=== PATIENT | male | born 1960 | race Caucasian/White ===

== ENCOUNTER 2023-09-20 13:55 | Inpatient (IN) | payer OTHER, SELFPAY ==
[2023-09-20] VITALS (16 sets, daily range): BP systolic 76–128; BP diastolic 51–73; BMI 21.2
[2023-09-20 10:29] LABS: % Basophils 0.4 % (0-2); % Eosinophils 0.9 % (0-6); % Immature Granulocytes 0.2 % (0-0.5); % Lymphocytes 21.8 % (20.5-51.1); % Monocytes 9.9 % (1.7-9.3); % Neutrophils 66.8 % (42.2-75.2); Absolute Eosinophils 0.1 10^3/uL (0-0.7); Absolute Lymphocytes 1.2 10^3/uL (1.2-3.4); Absolute Monocytes 0.5 10^3/uL (0.1-0.6); Absolute Neutrophils 3.7 10^3/uL (1.4-6.5); Hematocrit 39.5 % (39.0-52.0); Hemoglobin 13.6 g/dL (13.0-18.0); Mean Corp Hgb Conc. 34.4 g/dL (33.0-37.0); Mean Corpuscular Hgb 30.2 pg (27.0-31.0); Mean Corpuscular Volume 87.6 fL (80.0-94.0); Mean Platelet Volume 9.3 fL (7.4-10.4); Nucleated Red Blood Cells % 0 % (-); Platelet Count 199 10^3/uL (130-400); Red Blood Cell Count 4.51 10^6/uL (4.70-6.10); Red Cell Dist. Width 12.1 % (11.5-14.5); White Blood Cell Count 5.5 10^3/uL (4.8-10.8)
[2023-09-20] MEDS: NSS 500 IV ×2 (10:36→21:50)
--- NOTE | 2023-09-20 10:37 | ED.GENMED ---
History of Present Illness
General
Chief Complaint: Change in Mental Status
Source: patient
Exam Limitations: none
Time Seen by Provider: 09/20/23 09:59
Nursing documentation reviewed up to this point in time: agreed with
Travel History
Have you had any contact with someone who has COVID-19?: No
Do you have any symptoms of coronavirus? Fever > 100 degrees, chills, cough, shortness of breath, sore throat, loss of taste or smell, muscle aches, or headache?: No
History of Present Illness
History of Present Illness:
Patient diagnosed with early onset dementia last year, likely secondary to previous alcohol use, presents to ED from home secondary to 2-week history of worsening generalized weakness, confusion, and decreased oral intake. Patient himself, has no
complaints. Denies headache. Denies fever. Denies coughing. Denies chest pain. Denies abdominal pain. Denies nausea, vomiting, or diarrhea. Per ex-, at bedside, patient appears to be more unkempt, and also was found to be wandering in the
streets last week and had to be brought back to his house by neighbors/friends. Patient currently lives alone. Family members are working with social work associate, to potentially place patient in assisted living, as it has been deemed unsafe for patient
to be by himself by his neurologist at [facility].
Review of Systems
Review of Systems
Allergies reviewed?: Yes
All Other Systems: ROS reviewed and negative except as documented in HPI and ROS
Constitutional: Reports no symptoms; Denies fever or chills
Respiratory: Reports no symptoms; Denies cough
Cardiac: Reports no symptoms
ABD/GI: Reports no symptoms; Denies abdominal pain, vomiting or diarrhea
Musculoskeletal: Reports no symptoms
Skin: Reports no symptoms
Neurological: Reports other (Mental status change)
Phy Exam
Physical Exam
Physical Exam:
Physical Exam
General: no apparent distress, not acutely ill. afebrile. appears disheveled.
Head: nc/at. eomi
Neck: supple. no meningeal signs.
Heart: s1/s2 regular rate and rhythm, no murmur. equal radial pulses.
Lungs: no acute respiratory distress. clear bilaterally
Abdomen: normal bowel sounds. not tender.
Neuro: alert and oriented. no focal neurological deficits
Skin: no rash
Psychiatric: well kept. interactive and cooperative
Extremities: no edema. no calf tenderness.
Course
Orders/Labs/Results
Orders:
Orders
09/20/23 10:09
Alcohol Urgent
Complete Blood Count/With Diff Urgent
Comprehensive Metabolic Panel Urgent
Folate Urgent
Magnesium Urgent
Phosphorus Urgent
Comment: ADD ON
TSH Reflex To Free T4 Urgent
Comment: ALCOHOL,MAG,FOLATE,TSH REFLEX,VIT D ADDED ON BY FLOOR 10:20AM 09-20-23
Vitamin D, 25-Oh Urgent
09/20/23 10:22
Add On- LAB Urgent
Tests Added?: Magnesium, thiamine, folate, vitamin D, TSH with reflex to free T
09/20/23 10:24
Add On- LAB Urgent
Tests Added?: alcohol level
CT Head W/o Iv Contrast Urgent
Comment:
Reason For Exam: mental status change
09/20/23 10:25
Urinalysis Reflex To Culture Urgent
Date Specimen was Collected: 09/20/23
Time Specimen was Collected: 11:22
0.9% Sodium Chloride 500 ml [Nss] 500 ml IV BOLUS
09/20/23 13:00
0.9% Sodium Chloride 1000 ml [Nss] 1,000 ml Mvi, Adult [Multivitamin] 10 ml Thiamine Injection 100 mg IV 100 mls/hr
09/20/23 13:33
Urine Drug Abuse Screen Urgent
09/20/23 13:36
Admit/Transfer Patient As Directed
Co-Sign Provider:
Level of Care: Inpatient admission
Assign to:: IMU- Intermediate Care
Physician / Group: bennett nielson
Diagnosis: dehydration worsening dementia, hypotension, obtunded unclear
Reason for Hospitalization: dehydration worsening dementia, hypotension, obtunded unclear
Expected length of stay greater than two midnights?: Yes
ELOS- Estimated Length of Stay in days: 5
I certify the patient meets the requirements for IP care: Yes
Code Status As Directed
Resuscitation Status: Do not resuscitate
Reached after discussion with pt or family/Healthcare POA: Yes
Based on pt advanced directive or healthcare POA form: Yes
Decision communicated with: Her sister power of insurance defense attorney Pauline with patient's ex- and [id number]
DNR Bracelet Application ONCE
09/20/23 13:43
COVID-19 Antigen Urgent
Source: Nasal Swab
Blood Culture Q30M
NACHO Source: Blood/Venous
Specimen Description:
Blood Culture Q30M
NACHO Source: Blood/Venous
Specimen Description:
09/20/23 13:44
EKG [Electrocardiogram (*1)] Urgent
Reason for Study: QTc Monitoring
09/20/23 13:45
0.9% Sodium Chloride 1000 ml [Nss] 1,000 ml IV 2,000 mls/hr
09/20/23 13:49
Lorazepam [Ativan] 0.5 mg IV Q8HPRN PRN
09/20/23 13:50
FOLic ACID [Folvite] 1 mg 0.9% Sodium Chloride 50 ml [Nss] 50 ml IV DAILYPRN
09/20/23 13:51
DIETARY CONSULT Routine
Reason for Consult: Nutrition support, possible refeeding guidelines
MSAS SCORE As Directed
MSAS Score 0-4: Repeat MSAS every 2 hours until 0-4 for three consecutive assessments, then every 4 hours x 48
hours.
MSAS Score 5-7: For MILD withdrawl symptoms. Repeat MSAS and RASS every 2 hours
MSAS Score 8-11: For MODERATE withdrawal symptoms. Repeat MSAS and RASS every 1 hour. Consider ICU or IMU
level of care.
MSAS Score > 11: For SEVERE withdrawal symptoms. Repeat MSAS and RASS every 1 hour. Notify provider, consider
ICU level of care.
MSAS Additional Instructions: If no improvement or no decrease in score from severe to moderate within 12
hours, consult psychiatry
MSAS Notify Provider: Notify provider if patient requires more than 10 mg of Lorazepam in eight hour period.
09/20/23 20:00
Levetiracetam Injectable [Keppra] 500 mg IV Q12
Thiamine Injection 200 mg IV Q12
09/21/23 06:00
EEG Routine IN AM
Reason for Exam: mycoclonnic jerks concern seizure
09/21/23 08:00
FOLic ACID [Folvite] 1 mg PO DAILY
09/23/23 20:00
Thiamine HCl [Vitamin B1] 100 mg PO BID
Abnormal Lab Results
09/20/23
10:09
RBC 4.51 L 10^6/uL
(4.70-6.10)
Monocytes % 9.9 H %
(1.7-9.3)
BUN 24 H mg/dl
(9-20)
Glucose 107 H mg/dl
(70-99)
09/20/23 10:09
09/20/23 10:09
Vital Signs
Initial and Last Documented VS:
Initial Vital Signs
Temp Pulse Resp BP Pulse Ox
98.2 F 76 16 128/73 100
09/20/23 09:50 09/20/23 09:50 09/20/23 09:50 09/20/23 09:50 09/20/23 09:50
Last Documented Vital Signs
Temp Pulse Resp BP Pulse Ox
98.2 F 48 10 82/58 99
09/20/23 09:50 09/20/23 13:15 09/20/23 13:15 09/20/23 13:00 09/20/23 13:15
MDM/Problems Addressed
MDM/Problems Addressed:
Patient presenting symptoms, likely multifactorial, including significant decreased oral intake along with ongoing dementia. Mildly elevated BUN to creatinine ratio noted, otherwise unremarkable, including CT head. Patient will be admitted for
further evaluation, including continue IV hydration and likely requiring case management consultation for short-term/long-term placement.
*Critical Care Note
Total Time (30-74mins, 75-104mins- exclusive of procedures): Not Applicable
ED Attending Note
-
Portions of this chart may have been created with voice recognition software.� Occasional wrong word or��sound alike� substitutions may have occurred due to the inherent limitations of voice recognition software.
Discharge Plan
Departure
Patient Disposition: Admit
Date of Disposition: 09/20/23
Time of Disposition: 12:42
Admit to: Med/Surg
Presentation/result/management discussed w/ accepting MD/DO: Hospitalist
Discharge Problem:
Altered mental status, Dehydration
Interventions
Interventions:
*Risk Screen - Suicide Last Done: 09/20/23 09:57
*General Assessment Last Done: 09/20/23 09:57
*Neglect/Abuse Screening Last Done: 09/20/23 09:57
ED- Fall Risk Assessment Last Done: 09/20/23 10:37
ED- Pulmonary Assessment Last Done: 09/20/23 10:00
ED- Neurological Assessment Last Done: 09/20/23 09:57
ED- Cardiac Assessment Last Done: 09/20/23 10:00
ED Swallowing Screen Last Done: 09/20/23 11:25
[2023-09-20 11:10] LABS: ALT (SGPT) 32 U/L (0-50); AST (SGOT) 39 U/L (17-59); Albumin 4.2 g/dl (3.5-5.0); Alkaline Phosphatase 51 U/L (38-126); Blood Urea Nitrogen 24 mg/dl (9-20); Calcium 9.8 mg/dl (8.4-10.2); Carbon Dioxide 28 mmol/L (22-30); Chloride 104 mmol/L (98-107); Estimated Creatinine Clearance 102 ml/min; Glucose 107 mg/dl (70-99); Magnesium 2.2 mg/dl (1.6-2.3); Potassium 4.5 mmol/L (3.5-5.1); Sodium 141 mmol/L (135-145); Total Bilirubin 0.8 mg/dl (0.2-1.3); Total Protein 6.6 g/dl (6.3-8.2); eGFR > 60.00
[2023-09-20 11:54] LABS: Alcohol None Detected
--- NOTE | 2023-09-20 12:53 | HPS.HSE ---
Addendum entered and electronically signed by Lico Soria MD 09/20/23 17:38:
I saw and examined the patient.
The OPERATIONS SUPPORT SPECIALIST or PA's note was reviewed and I agree with the note.
Comment:
62M Early Onset Dementia brought in by his ex- due to increased confusion, hallucinations, wandering streets.� Patient had been diagnosed with dementia a year ago at [place] but, per family report, patient has had symptoms for the past 3-4 yrs.�
Recently developed hallucinations and shuffling gait for the past few months.� Ex- who hadn't seen patient in 2 weeks noted a dramatic change/deterioration in mental status since last she saw him, prompting her to bring patient to ED for further
evaluation.� It was noted that patient had previously been assessed by [place] Neurologist and deemed unsafe to live by himself.� ED evaluation was notable for hypotension and bradycardia.� Blood pressure improved with large fluid bolus.� Patient
himself was lethargic but arousable, confused rambling speech.� Intermittent jerking and shaking was noted, new as per family at bedside.� At one point, per reports, patient was essentially obtunded (since resolved though patient remains
non-coherent following simple commands to an extent).� Hypotensive systolic 80s with HR 40s.� BP eventually improved with large fluid bolus.
Physical Exam
General: No pallor, cyanosis, or jaundice.
HEENT: Throat clear. PERRLA Normocephalic atraumatic
NECK: Supple. No JVD Carotid Bruits
RESPIRATORY: Lungs clear to auscultation. No crackles wheezes stridor
CVS: S1, S2 normal. RRR.� No murmur, rub or gallop.
ABDOMEN: Soft, non-tender. No distension. BS+/normal.
EXTREMITIES: No peripheral cyanosis or edema.
DOCUMENT CONTROL MANAGER: incoherent mumbling speech generalized intermittent shaking/twitching some rigidity stiffness upper ext�s noted
#Early Onset Dementia Unspecified type associated with Hallucinations Behavioral Gait Disturbances
#Possible Lewy Body vs Frontotemporal Dementia
#Possible partial focal sz tic 2/2 progression dementia
#Hypotension likely d/t low volume
#Bradycardia
IMU admit
IVF challenge, levophed if hypotension does not resolve with fluid bolus
Trial Keppra 500 mg IV BID
Seizure fall aspiration precautions
ST/PT/OT
EEG
awake overnight monitor
Thiamine Folate Multivitamin supplementation
Check EKG
DNR as per family/sister POA Pauline
Original Note:
Family Physician
-
Family Physician: Abbie Cohen
Chief Complaint
-
Increased confusion, increased hallucinations, myoclonic jerks
History of Present Illness
62-year-old male from home brought in by his ex- due to increased confusion, wandering the streets, increased hallucinations. He was able to walk back to the room, but he is currently obtunded in the bed with occasional myoclonic jerks. He is
hypotensive 82/58 and bradycardic heart rate 47. His ex- did say yesterday she visited him and he had some nasal bleeding. They are unsure how often he goes out they are unsure of any review of systems. He diagnosed with frontal temporal lobe
dementia last year presumed secondary to alcohol use. The patient lives alone at home and has had 2 weeks worth of increased generalized weakness, confusion with decreased oral intake per his ex- at bedside. He also appears more unkept found
to be wandering the streets last night and was brought home by neighbors. His family members have been working with social work to place an assisted living as he has been deemed unsafe by neurology at [facility]. Past medical history prior
alcohol abuse sober since May 2008, dementia Dx since 2022 presumed secondary to alcohol abuse he has been drinking very heavily since early college. He has also had hallucinations for the past 6 months strong family history of alcohol abuse
biological father, maternal half brothers, biological brother and sister also history of depression, bipolar disorder and anxiety including 2 of his children
Medical History
Past Medical History
Past Medical History: Reports Other
Additional Past Medical History:
Alcohol abuse sober since May 2008,
dementia Dx since 2022 presumed secondary to prior alcohol abuse
History of hallucinations x 6 months
Hx bradycardia
Chronic fungal nail and toe infections
Past Surgical History: Reports None
Social History
Tobacco: Non-smoker
Alcohol: Former (Quit 2008 was drinking heavily since college)
Drug: None (Per family)
Personal:
Living: Alone
Employment: Retired
Family History
Family History: Other (Paternal father depression, history multiple suicide attempts, alcohol abuse, biological sister alcohol abuse bipolar disorder, biological brother alcohol abuse, depression, maternal half sibling 2 brothers with alcohol abuse
and anxiety, patient's 2 out of 4 children daughter with anxiety severe, s)
Allergies / Home Medications
Allergies reflects when Allergies were last updated in [facility].
Home Medications with original date entered in [facility]
Allergy/Medication List:
Allergies
Allergy/AdvReac Type Severity Reaction Status Date / Time
No Known Allergies Allergy Unverified 09/20/23 09:50
Home Medications
Aricept 10 mg PO HS 09/20/23
Review of Systems
-
History Source: Family (Sister Pauline power of battery container inspector, ex- present, [id number] present)
A 12 point ROS was completed and negative except as noted: Yes
Constitutional: Reports Fatigue and Other (Increased confusion, decreased oral intake, acute on chronic dementia)
EENT: Denies Runny Nose
Respiratory: Denies Cough
Cardiac: Denies Diaphoresis or Syncope
Abdomen/GI: Denies Vomiting or Diarrhea
Musculoskeletal: Denies Joint Pain, Joint Swelling or Edema
Skin: Reports Other (Chronic fungal nail infection to fingers and toes is on chronic antifungal unsure name persistent); Denies Rash
Hematologic/Lymphatic: Reports No Symptoms
Psych: Reports Other (Obtunded)
Physical Exam
Vital Signs
Vital Signs
Temp Pulse Resp BP Pulse Ox
98.2 F 65 15 92/55 100
09/20/23 09:50 09/20/23 11:15 09/20/23 11:15 09/20/23 11:00 09/20/23 11:15
Physical Exam
General: Other (Chronic fungal nail infection to fingers and toes is on chronic antifungal unsure name persistent, patient was obtunded on my exam but did awaken for attending)
HEENT: NormoCephalic, Anicteric, PERRLA and Other (Dry oral mucosa)
Respiratory: Clear; No Wheezes, Rales or Rhonchi
Cardiac: S1/S2 and Bradycardia (Sinus bradycardia heart rate 47 bpm)
Breast: Deferred by me
GI: Soft, Non Tender, Non Distended, Normal Bowel Sounds and No Hepatosplenomegaly
Genito-urinary: Deferred by me
Musculoskeletal: No Clubbing, No Cyanosis, No Edema and Other (Chronic fungal nail infection to fingers and toes is on chronic antifungal unsure name persistent)
Skin: Warm, Dry and Other (Chronic fungal nail infection to fingers and toes is on chronic antifungal unsure name persistent); No Rash
Neuro: Other (Obtunded with occasional myoclonic jerks on my exam but did awaken for attending 10 minutes later still with confusion difficult understand speech)
Psych: Calm
Laboratory Results
-
09/20/23 10:09
09/20/23 10:09
Laboratory Results
Total Bilirubin 0.8 mg/dl (0.2-1.3) 09/20/23 10:09
AST 39 U/L (17-59) 09/20/23 10:09
ALT 32 U/L (0-50) 09/20/23 10:09
Alkaline Phosphatase 51 U/L (38-126) 09/20/23 10:09
Data Reviewed
-
CT Scan: Report Reviewed by me
Lab Data: Labs Reviewed by me
Impression/Plan
-
Impression/plan:
Inpatient IMU
# Encephalopathy
Poss partial seiure tics 2/2 to progression dementia
#Advancing frontotemporal likely 2/2 alcoholic DEMENTIA with hx of sedations x 6 months
Recent history of wandering
-Patient was deemed unsafe to live alone by neurology Riccardo Chicas per family
-Consult PT/OT/case management for [place] [facility]
-Is reportedly on Aricept family unsure if taking
-Fall precautions
- EEG
-Check B12, folate, TSH, mag
-Check flu, COVID, UA DOCUMENT CONTROL MANAGER, UDS ,TSH with free T4, blood cultures x 2
- add Keprra iv 500 mg bid
-MVI ordered by ER
- Iv thiamine , folate
-IV Ativan 0.5 mg every 8 hours as needed agitation
CT head without contrast: No acute intracranial abnormality
#Hypotension likely secondary to decreased oral intake
82/58
Will give 2 L NSS
-IV NSS 100 cc/h
#Dehydration secondary to decreased oral intake
Bun 24, BP 92/55
-IV NSS 2 L bolus then 100 cc/h
-Follow BMP
#Hx bradycardia
Current sinus bradycardia 47 bpm on monitor
Check EKG
#Prior alcohol abuse-reported sober since May 2008
Drank heavily from college till May 2008
0Alcohol nondetected
#Chronic fungal rash to fingernails and toenails
Is on unknown antifungal medication
#Cachexia secondary to protein malnutrition�BMI 21.2 KG
-Consult dietary
DVT prophylaxis
Subcu Lovenox
DNR per Sister Pauline who is power of battery container inspector at bedside
[2023-09-20] MEDS: MULTIVITAMIN 1011 ML IV (13:37)
[2023-09-20] MEDS: MULTIVITAMIN 1011 MG IV (13:37)
[2023-09-20] MEDS: NSS 1000 IV ×3 (13:39→22:45)
[2023-09-20 14:23] LABS: COVID-19 Antigen Negative (Negative)
[2023-09-20 15:29] LABS: Vitamin D, 25-OH*** 49.3 ng/mL (30-80)
[2023-09-20 15:42] LABS: TSH Reflex To Free T4 0.85 uIU/ml (0.47-4.68)
[2023-09-20 16:18] LABS: Folate > 20.0 ng/ml (2.76-20)
[2023-09-20] MEDS: KEPPRA 500 MG IV ×2 (16:57→20:06)
[2023-09-20 18:00] LABS: Urine Albumin Negative (Neg - Trace); Urine Bilirubin 1+ (Negative); Urine Character Clear (Clear); Urine Color Yellow; Urine Glucose Negative (Negative); Urine Ketone 3+ (Negative); Urine Leukocyte Negative (Negative); Urine Nitrite Negative (Negative); Urine Occult Blood Negative (Negative); Urine Urobilinogen 1+ (Neg - 1+)
[2023-09-20] MEDS: LOVENOX 40 MG SC (18:18)
--- NOTE | 2023-09-20 18:22 | PTCARENOTE ---
Pt rec'd to 3346 from ED, stood and pivoted to stretcher, Pt steady on feet, receptive and expressive aphasia, able to eventually follow commands. Orders reviewed, admission completed and plan of care discussed with sister Pauline at bedside.VSS-plan
discussed with Dr. Soria. Diet ordered, UA sent, awaiting flu swabs from lab.
--- NOTE | 2023-09-20 19:02 | PTCARENOTE ---
Dr. Soria at bedside to reassess pt, regular diet ordered, now orders rec'd to downgrade pt to tele. Report given to cellophane tester RN Elvin.
[2023-09-20] MEDS: THIAMINE INJECTION 200 MG IV (20:07)
--- NOTE | 2023-09-20 21:51 | PTCARENOTE ---
sbp inn the 70's again - notified utility helicopter repairer- pt made imu again - fluid bolus ordered with possible levophed
--- NOTE | 2023-09-20 22:51 | PTCARENOTE ---
fluid bolus complete- levo order more map of 65- map is 67- will not start levo at this time- pt is sleeping in bed without distress. sinus kesha- room air, afebrile
[2023-09-21] VITALS (25 sets, daily range): BP systolic 84–124; BP diastolic 45–86; BMI 21.2
[2023-09-21 01:01] LABS: Amphetamines Negative (Negative); Barbiturates Negative (Negative); Benzodiazepines Negative (Negative); Buprenorphine Negative (Negative); Cocaine Negative (Negative); Marijuana Negative (Negative); Methadone Negative (Negative); Methamphetamines Negative (Negative); Opiates Negative (Negative); Phencyclidine Negative (Negative); Tricyclic Antidepressants Negative (Negative)
[2023-09-21 05:08] LABS: % Basophils 0.8 % (0-2); % Eosinophils 3.4 % (0-6); % Lymphocytes 26.5 % (20.5-51.1); % Monocytes 10.6 % (1.7-9.3); % Neutrophils 58.7 % (42.2-75.2); Absolute Eosinophils 0.2 10^3/uL (0-0.7); Absolute Lymphocytes 1.3 10^3/uL (1.2-3.4); Absolute Monocytes 0.5 10^3/uL (0.1-0.6); Absolute Neutrophils 2.9 10^3/uL (1.4-6.5); Hematocrit 32.3 % (39.0-52.0); Hemoglobin 11.2 g/dL (13.0-18.0); Mean Corp Hgb Conc. 34.7 g/dL (33.0-37.0); Mean Corpuscular Hgb 29.8 pg (27.0-31.0); Mean Corpuscular Volume 85.9 fL (80.0-94.0); Mean Platelet Volume 9.9 fL (7.4-10.4); Nucleated Red Blood Cells % 0 % (-); Platelet Count 152 10^3/uL (130-400); Red Blood Cell Count 3.76 10^6/uL (4.70-6.10); Red Cell Dist. Width 12.1 % (11.5-14.5)
[2023-09-21 05:28] LABS: ALT (SGPT) 21 U/L (0-50); AST (SGOT) 28 U/L (17-59); Albumin 2.7 g/dl (3.5-5.0); Alkaline Phosphatase 44 U/L (38-126); Blood Urea Nitrogen 16 mg/dl (9-20); Calcium 8.2 mg/dl (8.4-10.2); Carbon Dioxide 26 mmol/L (22-30); Chloride 108 mmol/L (98-107); Estimated Creatinine Clearance 119 ml/min; Glucose 92 mg/dl (70-99); Potassium 4.1 mmol/L (3.5-5.1); Sodium 139 mmol/L (135-145); Total Bilirubin 0.4 mg/dl (0.2-1.3); Total Protein 4.8 g/dl (6.3-8.2); eGFR > 60.00
--- NOTE | 2023-09-21 07:10 | W.PN.HOSP.TC ---
Today's Communication/Plan
-
NPO for now pending improvement mental status
IVF support
IV albumin once
ST/PT/OT
Levophed prn MAP goal 65
Assessment / Plan
Assessment / Plan
Physical Exam
General: No pallor, cyanosis, or jaundice.
HEENT: Normocephalic atraumatic
NECK: Supple. No JVD Carotid Bruits
RESPIRATORY: Lungs clear to auscultation. No crackles wheezes stridor
CVS: S1, S2 Sinus Blade.� No murmur, rub or gallop.
ABDOMEN: Soft, non-tender. No distension. BS+/normal.
EXTREMITIES: No peripheral cyanosis or edema.
SHOE COVERER: Sedated
62M Early Onset Dementia brought in by his ex- due to increased confusion, hallucinations, wandering streets.� Patient had been diagnosed with dementia a year ago at [place] but, per family report, patient has had symptoms for the past 3-4 yrs.�
Recently developed hallucinations and shuffling gait for the past few months.� Ex- who hadn't seen patient in 2 weeks noted a dramatic change/deterioration in mental status since last she saw him, prompting her to bring patient to ED for further
evaluation.� It was noted that patient had previously been assessed by [place] Neurologist and deemed unsafe to live by himself.� ED evaluation was notable for hypotension and bradycardia.� Blood pressure transiently improved with large fluid bolus.�
Patient himself was lethargic but arousable, confused rambling speech.� Intermittent jerking and shaking was noted, new as per family at bedside.� Fluctuating mental status throughout stay from sedated to agitated to pleasant Awake Alert Conversant
fluent speech.
#Encephalopathy
#Poss partial focal seizure tics 2/2 to progression dementia
#Early onset Dementia unclear type, possible Advancing frontotemporal vs Lewy Body vs alcoholic DEMENTIA
#Behavioral Disturbances Hallucinations progressive past 6 months.
-Patient deemed unsafe to live alone by neurology [facility] per family
-ST/PT/OT case mgmt eval
-Fall precautions
-EEG, empiric Keppra 500 mg Q12H started, cont.
-Check B12
-Folate non-deficient
-TSH, mag wnl
-Flu, COVID neg
-blood cultures x 2 NGTD
-MVI
- Iv thiamine , folate
-IV Ativan 0.5 mg every 8 hours as needed agitation reduced to 0.25 mg due to oversedation
CT head without contrast: No acute intracranial abnormality
#Hypotension likely secondary to decreased oral intake poor nutrition
#Hypoalbuminemia
received 2 L NSS on admission
cont IV NSS 100 cc/h
Albumin transfusion 25 g once 09/20
Levophed prn goal MAP 65, so far has not required
#Dehydration secondary to decreased oral intake
-IVF support
#Hx bradycardia
Sinus Bradycardia with associate hypotension systolic 80s
Cardio eval appreciated
#Prior alcohol abuse-reported sober since May 2008
Drank heavily from college till May 2008
Alcohol nondetected
#Cachexia secondary to protein malnutrition�BMI 21.2 KG
-dietary
DVT prophylaxis
Subcu Lovenox
DNR
Discussed with patient's sister FATIMAH Carpenter
I spent a total of 58 minutes with the patient or on the floor. More than 50% of this time involved counseling and coordination of care.
Anticipated Discharge: > 48 hours
Subjective/Interval History
-
Date of Service: September 21, 2023
Objective Data
-
Labs:
Laboratory Results
09/21/23
04:30
WBC 5.0
Hgb 11.2 L
Hct 32.3 L
Plt Count 152 D
Sodium 139
Potassium 4.1
Chloride 108 H
Carbon Dioxide 26
BUN 16
Creatinine 0.6 L
Glucose 92
Calcium 8.2 L D
Total Bilirubin 0.4
AST 28
ALT 21
Alkaline Phosphatase 44
Vital Signs:
Vital Signs
Temp Pulse Resp BP Pulse Ox
98.1 F 43 9 85/64 97
09/21/23 04:00 09/21/23 05:00 09/21/23 05:00 09/21/23 05:00 09/21/23 05:00
I&O
09/20/23 09/21/23 09/22/23
06:59 06:59 06:59
Intake Total 1180 / 1180
Output Total 925 / 925
Balance 255 / 255
--- NOTE | 2023-09-21 08:00 | PTCARENOTE ---
Pt becoming agitated can not redirect . pt does not seem to understand what i sat to him and what he says to me i do not understand. Ativan given as ordered with all other meds. Pt had a hard time taking pills as he did not know what to do, helped
pt put pills in mouth gave him a sip of water and he took the pills without incident
[2023-09-21] MEDS: NSS 1000 IV ×2 (08:09→20:06)
[2023-09-21] MEDS: FLEXBUMIN 100 IV (08:10)
[2023-09-21] MEDS: NSS (PRESERVATIVE FREE) 0.25 ML IV (08:13)
[2023-09-21] MEDS: ATIVAN 0.5 MG IV (08:14)
[2023-09-21] MEDS: THIAMINE INJECTION 200 MG IV ×2 (08:16→20:20)
[2023-09-21] MEDS: THERAGRAN 1 TABLET PO (08:20)
[2023-09-21] MEDS: KEPPRA 500 MG IV ×2 (08:20→20:12)
[2023-09-21] MEDS: FOLVITE 1 MG PO (08:21)
--- NOTE | 2023-09-21 09:35 | CON.CAR ---
Consultation
Consultation Request
Date/Time Consultation Requested: Sep 21 2023
Date/Time Consultation Performed: Sep 21 2023
Requesting Provider: Dr Soria
Performing Provider: Dr Barahona
Reason for Consultation: Bradycardia / hypotension
Medical History
-
Chief Complaint: Confusion
History of Present Illness:
.
Patient is 62 yo with hx of dementia diagnosed at [facility] one year ago but had symptoms for 3-4 yrs as per family. Brought in by ex- due to increased confusion, hallucinations, wandering the streets.�
Apparently pt had been assessed by [facility] neurologist who deemed pt unsafe to live alone. In ER, pt was found to has sinus bradycardia and hypotension. Hypotension responded to IVF. Pt was lethargic but arousable in ER with rambling speech. Pt
received ativan this AM and is now sedated. Per records pt had been essentially obtunded at one point but this resolved.
Cardiology was consulted for sinus bradycardia and hypotension. HR 40s with SBP 80s. Pt receiving albumin and IVF. pt started on Keppra by primary service after pt had twitching noted by medical team
Pt is DNR
Past Medical History:
Early onset dementia dx 2022, of unspecified type
Past alcoholic, sober since May 2008
History of hallucinations x 6 months
Hx bradycardia
Chronic fungal nail and toe infections
Pt is DNR, POA sister Pauline
No PSH
Social History
Tobacco: Non-Smoker
Alcohol: Former (Former heavy alcohol since college and quit in 2008. )
Drug: None
Personal:
Living: Alone
Employment: Retired
Family History
Family History: Reviewed & Not Pertinent (Father with depression and suicide attempts, brother and sister with alcoholism and depression)
Allergies / Home Medications
Allergy/AdvReac Type Severity Reaction Status Date / Time
No Known Allergies Allergy Unverified 09/20/23 09:50
�Medication �Instructions �Recorded �Confirmed �Type
Thu 1 tab PO DAILYPRN PRN runny nose 09/20/23 09/20/23 History
donepezil 10 mg tablet 10 mg PO HS Mental Health/Anxiety 09/20/23 09/20/23 History
terbinafine HCl 250 mg tablet 250 mg PO .SEE BELOW 09/20/23 09/20/23 History
Antifungal Agent,
Review of Systems
-
Unable to obtain full review of systems at this time due to: Dementia
History Source: Physician and Other (records)
All other systems: Negative unless noted
Constitutional: Fatigue and Other (Change mental status)
Neurological: Weakness
Physical Exam
Vital Signs
Temp Pulse Resp BP Pulse Ox
98.1 F 43 9 85/64 97
09/21/23 08:02 09/21/23 05:00 09/21/23 05:00 09/21/23 05:00 09/21/23 05:00
Physical examination:
General: No acute distress, lethargic
Neck: Negative JVD
Heart: Bradycardic, Negative S3 positive S1/S2, Negative S4, No murmur
Lungs: CTA b/l, negative wheezes/rales/rhonchi
Abd: Positive BS, NT/ND, neg rebound/rigidity/guarding
Ext: Negative cyanosis/clubbing/edema
Neuro: nonfocal
Lab Results
09/21/23 04:30
09/21/23 04:30
Impression / Plan
-
.
Impression:
Early onset dementia dx 2022, of unspecified type
Past alcoholic, sober since May 2008
History of hallucinations x 6 months
Hx bradycardia
Bradycardia
Hypotension
Pt is DNR, POA sister Pauline
Plan:
Continue supportive care
Bradycardia is multifactorial and pt apparently had hx of bradycardia. Some bradycardia can be from autonomic dysfunction in setting of dementia and neurological changes
Consider neuro eval.
Avoid AV jose blockers
Check echo
TSH normal
Monitor HR on tele
Pt appears to be a poor candidate for invasive PPM and is DNR.
Could consider Dopamine for HR support if necessary
Continue supportive care of hypotension. Some hypotension likely secondary to poor intake. Agree with albumin
IVF support
Echo pending
Prognosis is poor.
Discussed with nursing
Data Reviewed
-
EKG: Tracing Personally Visualized and interpreted
Labs: Labs Reviewed by me
[2023-09-21 13:25] LABS: Cortisol, Random 7.7 ug/dl
--- NOTE | 2023-09-21 13:50 | PTOTSP ---
SPEECH THERAPY SWALLOW EVALUATION:
Clinical signs of oropharyngeal dysphagia, likely chronic related to early onset dementia and acutely exacerbated by lethargy from Ativan administration from earlier today. Patient is clearly unsafe for oral diet or medications at this time, and is
at high risk for aspiration and related complications. Recommend temporary strict NPO; temporary alternate means for all nutrition/medication/hydration. Speech therapy to follow, re-assess patient in 24 hours, determine readiness for additional p.o.
trials, and provide diagnostic swallow therapy as appropriate.
RECOMMEND:
1) temporary strict NPO
2) temporary alternate means for all nutrition/medication/hydration
3) Speech therapy to follow, re-assess patient in 24 hours, determine readiness for additional p.o. trials, and provide diagnostic swallow therapy as appropriate
--- NOTE | 2023-09-21 16:40 | PTCARENOTE ---
Pt had been drowsy most of the day .family visited . Pt incont of urine
[2023-09-21 17:44] LABS: Vitamin B12 811 pg/ml (239-931)
[2023-09-21] MEDS: LOVENOX 40 MG SC (17:51)
[2023-09-21] MEDS: ATIVAN 0.25 MG IV (23:59)
[2023-09-22] VITALS (23 sets, daily range): BP systolic 77–124; BP diastolic 49–78; PULSE 75
[2023-09-22 04:07] LABS: % Basophils 0.6 % (0-2); % Eosinophils 2.5 % (0-6); % Immature Granulocytes 0.3 % (0-0.5); % Lymphocytes 15.4 % (20.5-51.1); % Neutrophils 73.2 % (42.2-75.2); Absolute Eosinophils 0.2 10^3/uL (0-0.7); Absolute Monocytes 0.5 10^3/uL (0.1-0.6); Absolute Neutrophils 4.8 10^3/uL (1.4-6.5); Hematocrit 35.6 % (39.0-52.0); Hemoglobin 12.8 g/dL (13.0-18.0); Mean Corpuscular Hgb 30.1 pg (27.0-31.0); Mean Corpuscular Volume 83.8 fL (80.0-94.0); Mean Platelet Volume 9.7 fL (7.4-10.4); Nucleated Red Blood Cells % 0 % (-); Platelet Count 166 10^3/uL (130-400); Red Blood Cell Count 4.25 10^6/uL (4.70-6.10); Red Cell Dist. Width 11.9 % (11.5-14.5); White Blood Cell Count 6.5 10^3/uL (4.8-10.8)
--- NOTE | 2023-09-22 04:11 | PTCARENOTE ---
hallucinations and behavioral symptoms increased requiring Ativan- afebrile bp wnl
[2023-09-22] MEDS: NSS 1000 IV ×3 (04:28→22:10)
[2023-09-22 04:35] LABS: ALT (SGPT) 21 U/L (0-50); AST (SGOT) 30 U/L (17-59); Albumin 3.4 g/dl (3.5-5.0); Alkaline Phosphatase 42 U/L (38-126); Blood Urea Nitrogen 6 mg/dl (9-20); Calcium 8.7 mg/dl (8.4-10.2); Carbon Dioxide 28 mmol/L (22-30); Chloride 105 mmol/L (98-107); Estimated Creatinine Clearance 119 ml/min; Glucose 82 mg/dl (70-99); Potassium 3.6 mmol/L (3.5-5.1); Sodium 139 mmol/L (135-145); Total Bilirubin 0.8 mg/dl (0.2-1.3); Total Protein 5.6 g/dl (6.3-8.2); eGFR > 60.00
--- NOTE | 2023-09-22 07:17 | PTCARENOTE ---
Pt Bp 77/50 hr 48 Sister wants pt on hospice and wants pt to eat . Dr Soira TT aware of situation. At this time pt is asleep
[2023-09-22] MEDS: FLEXBUMIN 100 IV (07:42)
[2023-09-22] MEDS: NSS 500 IV (07:45)
--- NOTE | 2023-09-22 07:47 | W.PN.HOSP.TC ---
Addendum entered and electronically signed by Lico Soria MD 09/22/23 23:45:
Patient noted to have visual auditory hallucinations present prior to admission
Original Note:
Today's Communication/Plan
-
Blood pressure support IVF/Albumin boluses as necessary
levophed if hypotension is refractory to above treatments
Hospice Eval
ST/PT/OT
fall/seizure/aspiration precautions
Assessment / Plan
Assessment / Plan
Physical Exam
General: No pallor, cyanosis, or jaundice.
HEENT: Normocephalic atraumatic
NECK: Supple. No JVD Carotid Bruits
RESPIRATORY: Lungs clear to auscultation. No crackles wheezes stridor
CVS: S1, S2 Sinus Blade.� No murmur, rub or gallop.
ABDOMEN: Soft, non-tender. No distension. BS+/normal.
EXTREMITIES: No peripheral cyanosis or edema.
CANDLES POURER: Fluctuating mental status throughout day
62M Early Onset Dementia brought in by his ex- due to increased confusion, hallucinations, wandering streets.� Patient had been diagnosed with dementia a year ago at [facility] but, per family report, patient has had symptoms for the past 3-4 yrs.�
Recently developed hallucinations and shuffling gait for the past few months.� Ex- who hadn't seen patient in 2 weeks noted a dramatic change/deterioration in mental status since last she saw him, prompting her to bring patient to ED for further
evaluation.� It was noted that patient had previously been assessed by [facility] Neurologist and deemed unsafe to live by himself.� ED evaluation was notable for hypotension and bradycardia.� Blood pressure transiently improved with large fluid bolus.�
Patient himself was lethargic but arousable, confused rambling speech.� Intermittent jerking and shaking was noted, new as per family at bedside.� Fluctuating mental status throughout stay from sedated to agitated to pleasant Awake Alert Conversant
fluent speech.
#Encephalopathy
#Poss partial focal seizure tics 2/2 to progression dementia
#Early onset Dementia unclear type, possible Advancing frontotemporal vs Lewy Body vs alcoholic DEMENTIA
#Behavioral Disturbances Hallucinations progressive past 6 months.
-Patient deemed unsafe to live alone by neurology Riccardo Chicas per family
-ST eval appreciated Soft Bite Sized diet with thin liquids, meds crushed in pureed
-PT/OT eval appreciated SNF rehab
-Fall precautions
-empiric Keppra 500 mg Q12H briefly started due to intermittent shaking/twitching since resolved, held for EEG which showed no sz activity, continuing to hold keppra at this time
-B12 wnl
-Folate non-deficient
-TSH, mag wnl
-Flu, COVID neg
-blood cultures x 2 NGTD
-MVI
- Iv thiamine , folate
-IV Ativan 0.5 mg every 8 hours as needed agitation reduced to 0.25 mg due to oversedation
CT head without contrast: No acute intracranial abnormality
#Hypotension likely secondary to decreased oral intake poor nutrition
#Hypoalbuminemia
received 2 L NSS on admission
cont IV NSS 100 cc/h
Albumin transfusion 25 g once 09/20
Levophed prn goal MAP 65, so far has not required
09/21 hypotensive in AM systolic 70s responded well to IVF and albumin bolus, BP stable throughout rest of day
#Dehydration secondary to decreased oral intake
-IVF support
#Hx bradycardia
Sinus Bradycardia with associate hypotension systolic 80s
Cardio eval appreciated
#Prior alcohol abuse-reported sober since May 2008
Drank heavily from college till May 2008
Alcohol nondetected
#Cachexia secondary to protein malnutrition�BMI 21.2 KG
-dietary
DVT prophylaxis
Subcu Lovenox
DNR
09/21 Discussed with patient's sister FATIMAH Carpenter requesting hospice. Hospice eval requested. Also discussed patient appropriate for palliative care consideration as well.
I spent a total of 58 minutes with the patient or on the floor. More than 50% of this time involved counseling and coordination of care.
Anticipated Discharge: 24 - 48 hours
Subjective/Interval History
-
Date of Service: September 22, 2023
fluctuating mental status noted throughout day. Hypotensive in morning systolic 70s improved with IVF and albumin bolus.
Objective Data
-
Labs:
Laboratory Results
09/22/23
03:47
WBC 6.5
Hgb 12.8 L
Hct 35.6 L
Plt Count 166
Sodium 139
Potassium 3.6
Chloride 105
Carbon Dioxide 28
BUN 6 L
Creatinine 0.6 L
Glucose 82
Calcium 8.7
Total Bilirubin 0.8
AST 30
ALT 21
Alkaline Phosphatase 42
Vital Signs:
Vital Signs
Temp Pulse Resp BP Pulse Ox
99.0 F 74 22 108/65 98
09/22/23 07:18 09/22/23 06:00 09/22/23 06:00 09/22/23 06:00 09/21/23 21:21
I&O
09/21/23 09/22/23 09/23/23
06:59 06:59 06:59
Intake Total 1180 / 1180 1420 / 1420
Output Total 925 / 925 1550 / 1550
Balance 255 / 255 -130 / -130
[2023-09-22] MEDS: THIAMINE INJECTION 200 MG IV ×2 (07:50→20:30)
--- NOTE | 2023-09-22 08:10 | PTCARENOTE ---
BP responding to Albumin EEG in progress .Pt is calm at this time. Sister POA at bedside
--- NOTE | 2023-09-22 08:45 | W.PN.UPDATE ---
Update Note
Progress Note Update
Discussed with primary service, family sending pt to Hospice.
Will cancel echo
Please recall if needed.
[2023-09-22] MEDS: THERAGRAN 1 TABLET PO (09:03)
[2023-09-22] MEDS: FOLVITE 1 MG PO (09:03)
--- NOTE | 2023-09-22 09:34 | PTOTSP ---
Dysphagia Evaluation
Patient currently presents with at least mild oral stage dysphagia in setting of acute on chronic AMS. Consider modified diet below as 'safest' diet. However, if patient transitioning to hospice/comfort care, could consider liberalizing diet per
family/patient GOC.
Recommend:
1. IDDSI Level 6 Soft and Bite Sized, IDDSI Level 0 Thin Liquids
2. Medications crushed in puree if medically cleared to do so
3. Strategies: Full supervision, assist with feeding as needed, small single sips/bites, liquid wash as needed to clear oral cavity, verbal cueing to sequence swallowing activities
4. Oral care 3x daily
5. Will follow up briefly at the acute care level pending patient/family goals of care.
--- NOTE | 2023-09-22 09:43 | CM ---
Addendum entered by Kylee Chew RN 09/22/23 10:21:
Spoke with [facility]; they are unable to accept the patient as they do not have an available bed.
Spoke with Hospice Office; [facility] is off today. The hospice nurse is Lorene Kwan and she has no phone= she is on TT---> message sent.
Plan meet with sister for additional SNF choices.
Original Note:
Patient with Dx encephalopathy, Poss partial focal seizure tics 2/2 to progression dementia. IV Keppra, IV Ativan prn.
Spoke with patient's sister FATIMAH Carpenter who lives in [place];
the patient had been residing alone in a 2 story house with 1 MARNIE.
He had been managing fairly well until a few weeks ago, despite having hallucinations the past 7-8 months.
He has been independent in ADLs and ambulation.
The patient had food delivery through [employer] however he was unable to open the food packages. About 2 wks ago he stopped eating & drinking as the voices told him to do so.
He has been leaving the water running and the fridge door open.
Pauline contacted [facility] and SW was supposed to meet with them however she did not show up.
He has no DME, prior VN or SNF.
PCP - Nicko Barcenas
Pharmacy - [facility]
The patient has 4 children; 2 are out of state, 1 is in a psych facility and only 1 lives nearby. He has an ex- nearby.
Pauline has to return to [place] tomorrow for a medical appointment.
CM Consult: Hospice
Explained hospice philosophy/benefits.
Pauline would like hospice and is hoping the patient can go to [facility] SNF.
Referral to [facility].
SNF referral placed.
Plan follow up with [facility] for acceptance.
Plan follow up after seen by hospice.
--- NOTE | 2023-09-22 10:38 | EEG.RPT ---
Electroencephalogram Report
Recording
Date of EE09/22/23
Type of EEG: Routine
Length of EEG recordin minutes
Done with Video Recording: Yes
Patient Status: Inpatient
Recording Conditions: Awake and Drowsy
Hyperventilation Performed: No
Photic Stimulation Performed: Yes
Report
LESS THAN 1 HOUR REPORT
LESS THAN 1 HOUR EEG INTERPRETATION:
Mildly abnormal EEG for age mild diffuse bihemispheric slowing
CLINICAL CORRELATION:
This study was suggestive of mild diffuse cortical dysfunction without focal abnormality. No seizures were recorded. If concerns remain regarding seizures, consideration for prolonged EEG recording may be given.
Clinical correlation is advised.
METHODS:
A 21 channel digitized electroencephalogram (EEG) was performed in the Clinical Neurophysiology Laboratory. The 10/20 international system of electrode placement was used with ECG and lateral/vertical eye movements recorded. The [employer] quantitative
measurement system was utilized.
QUALITY OF STUDY:
Good
ELECTROENCEPHALOGRAPHER IMPRESSION(S):
Background
Medium amplitude fairly organized anterior-posterior voltage gradient of alpha maximal activity, usually delta
There were no significant asymmetries of background activity noted.
Sleep
Drowsiness present
Photic Stimulation
Failed to activate the record
ECG
Normal sinus rhythm
--- NOTE | 2023-09-22 12:39 | PTCARENOTE ---
Pt mark agitated when urinating with out a urinal Hospice now talking with sister
--- NOTE | 2023-09-22 13:58 | PN.CDI ---
CDI
- -
CDI:
Physician Documentation Request
Admit Date: 09/20/23 13:55
Dear Doctor Yang,
Patient was brought to ED for increased confusion, hallucinations and wandering streets
09/21 nursing note states hallucinations and behavioral symptoms increased requiring Ativan
Please further specify the type of hallucinations:
Visual
Auditory
tactile
Other
Use of terms such as suspected, likely, concern for, or probable (associated with a specific diagnosis that is being evaluated, monitored, or treated as if it exists) are acceptable and can be coded in the inpatient setting, when documented at the
time of discharge.
Thank you,
Adelina Harris RN, BSN
CDI Specialist
tiger text
Please use your independent medical judgment in providing your response.
--- NOTE | 2023-09-22 15:30 | HOSPNOTE ---
Hospice evaluation for appropriateness of home hospice in a nursing facility.
Patient is newly diagnosised with dementia, unable to live independently. Patient thought he was playing a game with friends which involved who could go longer without eating or drinking, according to sister Pauline. Speech cleared patient to eat
and drink today. Ate a full lunch with supervision of family and nurse. quickly forgets he ate and asks for lunch again.
Patient speaks in partial sentences, attempting to answer questions but 3-5 words into response he trails off in speech. Patient is incontinent of bowel and bladder. Sister is looking for placement in a nursing facility or memory care unit.
At this time this hospice nurse is unsure of his FAST score and meeting the criteria for hospice. Suggesting we reevaluate in am as family continues to look for placement.
[2023-09-22] MEDS: LOVENOX 40 MG SC (17:43)
--- NOTE | 2023-09-22 20:47 | PTCARENOTE ---
Received pt from vinny WILSON. Pt is OOB in the chair, family @ bedside. Pt is AAOx2 (time), MSAS, neuro checks q4, confused/forgetful. Sinus kesha on the monitor. On RA O2 sat 98%, lungs diminished. Incont @ times. IVF infusing @ 100 ml/hr. Assisted
back to bed x1. Bed alarm in place. Pt is laying comfortable in bed with call cobian in reach.
[2023-09-23] VITALS (12 sets, daily range): BP systolic 95–118; BP diastolic 64–82
[2023-09-23 04:58] LABS: ALT (SGPT) 19 U/L (0-50); AST (SGOT) 26 U/L (17-59); Albumin 3.5 g/dl (3.5-5.0); Alkaline Phosphatase 41 U/L (38-126); Blood Urea Nitrogen 10 mg/dl (9-20); Calcium 8.7 mg/dl (8.4-10.2); Carbon Dioxide 24 mmol/L (22-30); Chloride 106 mmol/L (98-107); Estimated Creatinine Clearance 119 ml/min; Glucose 96 mg/dl (70-99); Potassium 4.1 mmol/L (3.5-5.1); Sodium 139 mmol/L (135-145); Total Bilirubin 0.6 mg/dl (0.2-1.3); Total Protein 5.7 g/dl (6.3-8.2); eGFR > 60.00
[2023-09-23 05:03] LABS: % Basophils 0.5 % (0-2); % Immature Granulocytes 0.2 % (0-0.5); % Lymphocytes 19.3 % (20.5-51.1); % Monocytes 10.6 % (1.7-9.3); % Neutrophils 65.4 % (42.2-75.2); Absolute Eosinophils 0.2 10^3/uL (0-0.7); Absolute Lymphocytes 1.1 10^3/uL (1.2-3.4); Absolute Monocytes 0.6 10^3/uL (0.1-0.6); Absolute Neutrophils 3.8 10^3/uL (1.4-6.5); Hemoglobin 12.7 g/dL (13.0-18.0); Mean Corp Hgb Conc. 36.3 g/dL (33.0-37.0); Mean Corpuscular Volume 82.5 fL (80.0-94.0); Mean Platelet Volume 9.7 fL (7.4-10.4); Nucleated Red Blood Cells % 0 % (-); Platelet Count 143 10^3/uL (130-400); Red Blood Cell Count 4.24 10^6/uL (4.70-6.10); Red Cell Dist. Width 11.9 % (11.5-14.5); White Blood Cell Count 5.7 10^3/uL (4.8-10.8)
[2023-09-23] MEDS: NSS 1000 IV (07:59)
[2023-09-23] MEDS: FOLVITE 1 MG PO (07:59)
[2023-09-23] MEDS: THERAGRAN 1 TABLET PO (07:59)
[2023-09-23] MEDS: THIAMINE INJECTION 200 MG IV (07:59)
--- NOTE | 2023-09-23 09:19 | W.PN.HOSP.TC ---
Today's Communication/Plan
-
see bold
Assessment / Plan
Assessment / Plan
62M Early Onset Dementia brought in by his ex- due to increased confusion, hallucinations, wandering streets.� Patient had been diagnosed with dementia a year ago at [facility] but, per family report, patient has had symptoms for the past 3-4 yrs.�
Recently developed hallucinations and shuffling gait for the past few months.� Ex- who hadn't seen patient in 2 weeks noted a dramatic change/deterioration in mental status since last she saw him, prompting her to bring patient to ED for further
evaluation.� It was noted that patient had previously been assessed by [facility] Neurologist and deemed unsafe to live by himself.� ED evaluation was notable for hypotension and bradycardia.� Blood pressure transiently improved with large fluid bolus.�
Patient himself was lethargic but arousable, confused rambling speech.� Intermittent jerking and shaking was noted, new as per family at bedside.� Fluctuating mental status throughout stay from sedated to agitated to pleasant Awake Alert Conversant
fluent speech.
#Encephalopathy
#Poss partial focal seizure tics 2/2 to progression dementia
#Early onset Dementia unclear type, possible Advancing frontotemporal vs Lewy Body vs alcoholic DEMENTIA
- CT head without contrast: No acute intracranial abnormality
#Behavioral Disturbances Hallucinations progressive past 6 months.
-Patient deemed unsafe to live alone by neurology [facility] per family
-ST eval appreciated Soft Bite Sized diet with thin liquids, meds crushed in pureed
-PT/OT eval appreciated SNF rehab
-empiric Keppra 500 mg Q12H briefly started due to intermittent shaking/twitching since resolved, held for EEG which showed no sz activity, continuing to hold keppra at this time
-B12 wnl, Folate non-deficient, TSH, mag wnl, Flu, COVID neg
-blood cultures x 2 NGTD
-IV Ativan 0.5 mg every 8 hours as needed agitation reduced to 0.25 mg due to oversedation
-Hospice consulted, family arranging for placement
#Hypotension likely secondary to decreased oral intake poor nutrition
#Hypoalbuminemia
Blood pressure improved status post albumin and IV fluids
Also add midodrine
#Dehydration secondary to decreased oral intake
-IVF support
#Hx bradycardia
Sinus Bradycardia with associate hypotension systolic 80s
Cardio eval appreciated
#Prior alcohol abuse-reported sober since May 2008
Drank heavily from college till May 2008
Alcohol nondetected
#Cachexia secondary to protein malnutrition�BMI 21.2 KG
-dietary
DVT prophylaxis
Subcu Lovenox
DNR
09/21 Dr. Soria discussed with patient's sister FATIMAH Carpenter requesting hospice. Hospice eval requested. Also discussed patient appropriate for palliative care consideration as well.
Physical Exam
General: No pallor, cyanosis, or jaundice.
HEENT: Normocephalic atraumatic
NECK: Supple. No JVD Carotid Bruits
RESPIRATORY: Lungs clear to auscultation. No crackles wheezes stridor
CVS: S1, S2 Sinus Blade.� No murmur, rub or gallop.
ABDOMEN: Soft, non-tender. No distension. BS+/normal.
EXTREMITIES: No peripheral cyanosis or edema.
AIRLINE MANAGER: Fluctuating mental status throughout day
Anticipated Discharge: 24 - 48 hours
Subjective/Interval History
-
Date of Service: September 23, 2023
No acute events overnight. No fever, no vomiting.
Objective Data
-
Labs:
Laboratory Results
09/23/23
04:19
WBC 5.7
Hgb 12.7 L
Hct 35.0 L
Plt Count 143
Sodium 139
Potassium 4.1
Chloride 106
Carbon Dioxide 24
BUN 10
Creatinine 0.6 L
Glucose 96
Calcium 8.7
Total Bilirubin 0.6
AST 26
ALT 19
Alkaline Phosphatase 41
Vital Signs:
Vital Signs
Temp Pulse Resp BP Pulse Ox
97.8 F 45 10 118/72 100
09/23/23 07:48 09/23/23 06:00 09/23/23 06:00 09/23/23 06:00 09/23/23 06:00
I&O
09/22/23 09/23/23 09/24/23
06:59 06:59 06:59
Intake Total 1420 / 1420 2210 / 2210
Output Total 1550 / 1550 1570 / 1570 700 / 700
Balance -130 / -130 640 / 640 -700 / -700
--- NOTE | 2023-09-23 11:22 | HOSPNOTE ---
Spoke with Pauline the sister who is the POA at this time the patient does not meet hospice criteria and the sister is in agreement. The sister should be coming in to see patient and would like a PT eval and would like to speak with case management
about placement. Floor RN updated on above as well as case management.
--- NOTE | 2023-09-23 12:09 | PTCARENOTE ---
Assumed care of patient at beginning of this shift from previous RN. Patient confused with garbled speech, difficult to understand at times. OOB to chair x1 assist. Needs assistance to use urinal but also incontinent at times. Ox2, confused to time;
MSAS 3-4. Bed and chair alarm maintained for patient safety. hazardous materials analyst evaluated this morning and not appropriate for hospice. Per self propelled mining machine operator, patient's sister is working to find placement and will talk with CM. Sister currently at bedside; KATELYN Nevarez
notified via tiger text. See worklist for full assessment and vital signs; see MAR for med administration.
--- NOTE | 2023-09-23 15:01 | PTOTSP ---
Dysphagia Therapy
Oral/pharyngeal stages of swallowing WFL to advance to regular, thin liquid diet. Supervision recommended given dementia. Medications as best tolerated. No further dysphagia therapy warranted. Please reconsult as appropriate.
--- NOTE | 2023-09-23 16:55 | CM ---
Patient with Dx encephalopathy, Poss partial focal seizure tics 2/2 to progression dementia. PT recommends skilled rehab.
[facility] with [facility]; she spoke with the patient's sister Pauline and conveyed that the patient is not hospice appropriate at this time.
Met with patient and his sister PaulineFATIMAH; Pauline asked to speak outside of patient's room to relay that she has found a facility that his children would like him to go to called [facility], Assisted Living &
Memory Care Units. She is hoping that the patient can go there this week so that she can have him settled, and then she can go home and proceed with her own medical treatment. Pauline provided the facility admission form- CM agrees to complete with
MD signature and fax back to the facility. Pauline is waiting to tell the patient he is going to this facility to live, as she is worried that he will be upset about it. Pauline says her contact that [facility] is Shanta Eric , [facility] [place] at ph
[phone], cell [phone].
Met with Shwetha Dodson, [facility], [facility] (ph [phone]), with Pauline in attendance; she did on site visit with patient. They are able to accept him to their locked Memory Care
Unit this 09/24. She will need the Residential Facility Form faxed back once MD signs.
Plan fax Residential Facility form to the [facility] once MD signs.
Plan [facility], Memory Care Unit 09/24.
[2023-09-23] MEDS: LOVENOX 40 MG SC (17:35)
[2023-09-23] MEDS: VITAMIN B1 100 MG PO (20:03)
--- NOTE | 2023-09-23 20:40 | PTCARENOTE ---
Received pt from vinny RN. Pt OOB in the chair family @ bedside. Pt is AAOx1 (self), MSAS Q4 (see worklist), neuro check (see worklist). Sinus kesha on the monitor (40s). On RA O2 sat 95%, lungs diminished. BRPx1. Chair/bed alarm in place. Pt
laying comfortable in bed with call cobian in reach.
[2023-09-24] VITALS (16 sets, daily range): BP systolic 93–122; BP diastolic 60–92; PULSE 71–84; BMI 21.4
[2023-09-24] MEDS: ATIVAN 0.25 MG IV (02:35)
[2023-09-24] MEDS: NSS (PRESERVATIVE FREE) 0.125 ML IV (02:36)
--- NOTE | 2023-09-24 07:50 | W.PN.HOSP.TC ---
Addendum entered and electronically signed by Ottoniel Dudley MD 09/24/23 17:56:
#Mild protein calorie malnutrition
Encourage oral intake
Addendum entered and electronically signed by Ottoniel Dudley MD 09/24/23 16:58:
Correction
Stable for med surg
Original Note:
Today's Communication/Plan
-
Transfer to tele
Discharge tomorrow
Assessment / Plan
Assessment / Plan
62M Early Onset Dementia brought in by his ex- due to increased confusion, hallucinations, wandering streets.� Patient had been diagnosed with dementia a year ago at [place] but, per family report, patient has had symptoms for the past 3-4 yrs.�
Recently developed hallucinations and shuffling gait for the past few months.� Ex- who hadn't seen patient in 2 weeks noted a dramatic change/deterioration in mental status since last she saw him, prompting her to bring patient to ED for further
evaluation.� It was noted that patient had previously been assessed by [place] Neurologist and deemed unsafe to live by himself.� ED evaluation was notable for hypotension and bradycardia.� Blood pressure transiently improved with large fluid bolus.�
Patient himself was lethargic but arousable, confused rambling speech.� Intermittent jerking and shaking was noted, new as per family at bedside.� Fluctuating mental status throughout stay from sedated to agitated to pleasant Awake Alert Conversant
fluent speech.
#Encephalopathy
#Poss partial focal seizure tics 2/2 to progression dementia
#Early onset Dementia unclear type, possible Advancing frontotemporal vs Lewy Body vs alcoholic DEMENTIA
- CT head without contrast: No acute intracranial abnormality
#Behavioral Disturbances Hallucinations progressive past 6 months.
-Patient deemed unsafe to live alone by neurology [facility] per family
-ST eval appreciated Soft Bite Sized diet with thin liquids, meds crushed in pureed
-PT/OT eval appreciated SNF rehab
-empiric Keppra 500 mg Q12H briefly started due to intermittent shaking/twitching since resolved, held for EEG which showed no sz activity, continuing to hold keppra at this time
-B12 wnl, Folate non-deficient, TSH, mag wnl, Flu, COVID neg
-blood cultures x 2 NGTD
-IV Ativan 0.5 mg every 8 hours as needed agitation reduced to 0.25 mg due to oversedation
-Hospice consulted, discharge to memory care unit tomorrow
#Hypotension likely secondary to decreased oral intake poor nutrition
#Hypoalbuminemia
Blood pressure improved status post albumin and IV fluids
Added midodrine prn (pt has not required)
#Dehydration secondary to decreased oral intake
-s/p IVF
#Hx bradycardia
Sinus Bradycardia with associate hypotension systolic 80s
Cardio eval appreciated
#Prior alcohol abuse-reported sober since May 2008
Drank heavily from college till May 2008
Alcohol nondetected
#Cachexia secondary to protein malnutrition�BMI 21.2 KG
-dietary
DVT prophylaxis
Subcu Lovenox
DNR
09/21 Dr. Soria discussed with patient's sister FATIMAH Carpenter requesting hospice. Hospice eval requested. Also discussed patient appropriate for palliative care consideration as well.
Total time spent to see the patient on the floor, examine the patient, review data and lab results, discuss treatment plan with patient, nursing staff around 35 minutes.
Physical Exam
General: No pallor, cyanosis, or jaundice.
HEENT: Normocephalic atraumatic
NECK: Supple. No JVD Carotid Bruits
RESPIRATORY: Lungs clear to auscultation. No crackles wheezes stridor
CVS: S1, S2 Sinus Blade.� No murmur, rub or gallop.
ABDOMEN: Soft, non-tender. No distension. BS+/normal.
EXTREMITIES: No peripheral cyanosis or edema.
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
Anticipated Discharge: Within 24 hours
Subjective/Interval History
-
Date of Service: September 24, 2023
No acute events. No fever, no vomiting.
Objective Data
-
Vital Signs:
Vital Signs
Temp Pulse Resp BP Pulse Ox
97.9 F 48 10 97/69 97
09/24/23 04:11 09/24/23 06:00 09/24/23 06:00 09/24/23 06:00 09/23/23 22:00
I&O
09/23/23 09/24/23 09/25/23
06:59 06:59 06:59
Intake Total 2210 / 2210 410 / 410
Output Total 1570 / 1570 700 / 700
Balance 640 / 640 -290 / -290
[2023-09-24] MEDS: THERAGRAN 1 TABLET PO (09:27)
[2023-09-24] MEDS: FOLVITE 1 MG PO (09:27)
[2023-09-24] MEDS: VITAMIN B1 100 MG PO ×2 (09:27→20:37)
--- NOTE | 2023-09-24 10:45 | PN.CDI ---
CDI
- -
CDI:
Physician Documentation Request
Admit Date: 09/20/23 13:55
Dear Doctor Do,
H&P and 09/21 progress note states 'Cachexia secondary to protein malnutrition�BMI 21.2 KG
To ensure the quality of the medical record, based on the above information and the recognized standards for malnutrition , could you please verify in your progress notes which of the following responses best reflects the patient's nutritional
status:
(Specify severity) Malnutrition is/was present and is a clinical diagnosis (please provide additional support in the medical record)
Cachexia without malnutrition
No nutritional deficiency
Other (please specify)
[place] Criteria ([facility] Hospitalist 2017)
2 or more criteria must be present for either
non severe or severe malnutrition
Note that the criteria differs related to the
presence of an acute or chronic illness
Acute Illness Chronic Illness
Energy Intake Non Severe: <75% for >7 days Non Severe: <75% for >1 month
Severe: <50% for >5 days Severe: <75% for >1 month
Weight Loss Non Severe: 1-2% over 1 week Non Severe: 5% over 1 month
5% over 1 month 7.5% over 3 months
7.5% over 3 months 10% over 6 months
1 year N/A 20% over 1 year
Severe: >2% over 1 week Severe: >5% over 1 month
>5% over 1 month >7.5% over 3 months
>7.5% over 3 months >10% over 6 months
1 year N/A >20% over 1 year
Body Fat Non Severe: Mild Decrease Non Severe: Mild Loss
Severe: Moderate Decrease Severe: Severe Loss
Muscle Mass Non Severe: Mild Decrease Non Severe: Mild Loss
Severe: Moderate Decrease Severe: Severe Loss
Fluid Accumulation Non Severe: Mild Accumulation Non Severe: Mild Accumulation
Severe: Moderate to severe Severe: Moderate to severe
accumulation accumulation
Reduced Counter Stitcher Strength Non Severe: N/A Non Severe: N/A
Severe: Measurably reduced Severe: Measurably reduced
Additional criteria that can be used to Determine if Mild or Moderate Malnutrition (Merck Manual 2018)
Mild Moderate Severe
Albumin gm/dl <3.0 gm/dl <2.5 gm/dl <2.0 gm/dl
Pre Albumin mg/dl <15 gm/dl <10 mg/dl <5.0 mg/dl
BMI <18.5 <17 <16
Use of terms such as suspected, likely, concern for, or probable (associated with a specific diagnosis that is being evaluated, monitored, or treated as if it exists) are acceptable and can be coded in the inpatient setting, when documented at the
time of discharge.
Thank you,
Adelina Harris RN, BSN
CDI Specialist
tiger text
Please use your independent medical judgment in providing your response.
--- NOTE | 2023-09-24 12:02 | PTCARENOTE ---
Assumed care of patient at beginning of this shift from previous RN. Patient continues to be confused, but cooperative; currently OOB in chair. MSAS continues as per order: scored 2 this morning. See worklist for full assessment and vital signs; see
MAR for med administration.
--- NOTE | 2023-09-24 12:47 | CM ---
Patient with Dx encephalopathy, Poss partial focal seizure tics 2/2 to progression dementia. Receiving IV Keppra. PT & OT; requires assist of 2, recommend skilled rehab.
Spoke with Shwetha Dodson, Reservations Specialist, [facility] (ph [phone]); she confirms she received the fax of the Residential Facility form. They have accepted the patient for admission tomorrow to their
Memory Care Unit and prefer patient arrive early in the day if possible- informed her will request 11-12noon. They are requested a script for PT-OT and will do in-house therapy for the patient. The for report to nurse Yara [phone], fax
[phone].
Message with Dr Dudley who agrees to noon discharge tomorrow.
Ambulance request to [employer] [facility] [employer] [facility].
Spoke with patient's sister FATIMAH Carpenter; she met with [facility] today to sign paperwork. She agrees with d/c tomorrow to [facility] at noon by ambulance.
Plan [facility], Memory Care Unit Thurs 09/24 at noon by ambulance.
[2023-09-24] MEDS: LOVENOX 40 MG SC (17:28)
--- NOTE | 2023-09-24 20:25 | PTCARENOTE ---
Received pt from vinny WILSON. Pt is OOB in the chair, family @ bedside. BRP x1. Hygiene provided. Pt is laying comfortable in bed with call cobian in reach.
[2023-09-25 03:06] VITALS: BMI 21.3
[2023-09-25] MEDS: ATIVAN 0.25 MG IV (03:06)
[2023-09-25] MEDS: THERAGRAN 1 TABLET PO (08:34)
[2023-09-25] MEDS: VITAMIN B1 100 MG PO (08:34)
[2023-09-25] MEDS: FOLVITE 1 MG PO (08:34)
--- NOTE | 2023-09-25 09:30 | W.PN.HOSP.TC ---
Addendum entered and electronically signed by Ottoniel Dudley MD 10/06/23 08:23:
Multifactorial acute encephalopathy and dementia
Original Note:
Today's Communication/Plan
-
Discharge to memory care today
Assessment / Plan
Assessment / Plan
62M Early Onset Dementia brought in by his ex- due to increased confusion, hallucinations, wandering streets.� Patient had been diagnosed with dementia a year ago at [place] but, per family report, patient has had symptoms for the past 3-4 yrs.�
Recently developed hallucinations and shuffling gait for the past few months.� Ex- who hadn't seen patient in 2 weeks noted a dramatic change/deterioration in mental status since last she saw him, prompting her to bring patient to ED for further
evaluation.� It was noted that patient had previously been assessed by [place] Neurologist and deemed unsafe to live by himself.� ED evaluation was notable for hypotension and bradycardia.� Blood pressure transiently improved with large fluid bolus.�
Patient himself was lethargic but arousable, confused rambling speech.� Intermittent jerking and shaking was noted, new as per family at bedside.� Fluctuating mental status throughout stay from sedated to agitated to pleasant Awake Alert Conversant
fluent speech.
#Encephalopathy
#Poss partial focal seizure tics 2/2 to progression dementia
#Early onset Dementia unclear type, possible Advancing frontotemporal vs Lewy Body vs alcoholic DEMENTIA
- CT head without contrast: No acute intracranial abnormality
#Behavioral Disturbances Hallucinations progressive past 6 months.
-Patient deemed unsafe to live alone by neurology [facility] per family
-ST eval appreciated reg diet, thin liquids, meds crushed in pureed
-PT/OT eval appreciated SNF rehab
-empiric Keppra 500 mg Q12H briefly started due to intermittent shaking/twitching since resolved, held for EEG which showed no sz activity, continuing to hold keppra at this time
-B12 wnl, Folate non-deficient, TSH, mag wnl, Flu, COVID neg
-blood cultures x 2 NGTD
-IV Ativan 0.5 mg every 8 hours as needed agitation reduced to 0.25 mg due to oversedation
-Hospice consulted, medically stable for discharge to memory care unit today
#Hypotension likely secondary to decreased oral intake poor nutrition
#Hypoalbuminemia
Blood pressure improved status post albumin and IV fluids
Added midodrine prn (pt has not required)
#Dehydration secondary to decreased oral intake
-s/p IVF
#Hx bradycardia
Sinus Bradycardia with associate hypotension systolic 80s
Cardio eval appreciated
#Prior alcohol abuse-reported sober since May 2008
Drank heavily from college till May 2008
Alcohol nondetected
#Cachexia secondary to protein malnutrition�BMI 21.2 KG
-dietary
DVT prophylaxis
Subcu Lovenox
DNR
09/21 Dr. Soria discussed with patient's sister FATIMAH Carpenter requesting hospice. Hospice eval requested. Also discussed patient appropriate for palliative care consideration as well.
Physical Exam
General: No pallor, cyanosis, or jaundice.
HEENT: Normocephalic atraumatic
NECK: Supple. No JVD Carotid Bruits
RESPIRATORY: Lungs clear to auscultation. No crackles wheezes stridor
CVS: S1, S2 Sinus Blade.� No murmur, rub or gallop.
ABDOMEN: Soft, non-tender. No distension. BS+/normal.
EXTREMITIES: No peripheral cyanosis or edema.
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
Anticipated Discharge: Today
Subjective/Interval History
-
Date of Service: September 25, 2023
No acute events. Patient feels well. No fever, no vomiting.
Objective Data
-
Vital Signs:
Vital Signs
Temp Pulse Resp BP Pulse Ox
98.3 F 70 19 101/74 96
09/24/23 22:39 09/24/23 21:54 09/24/23 21:54 09/24/23 22:07 09/25/23 00:12
I&O
09/24/23 09/25/23 09/26/23
06:59 06:59 06:59
Intake Total 410 / 410 410 / 410
Output Total 700 / 700 1000 / 1000
Balance -290 / -290 -590 / -590
--- NOTE | 2023-09-25 10:38 | PTCARENOTE ---
Per case management note: patient for d/c today with pickup time of 12 noon. This nurse called and gave report to Merlene at [phone].
[2023-09-25 12:43] VITALS: BP 107/69
--- NOTE | 2023-09-25 14:58 | CM ---
Patient with Dx encephalopathy, Poss partial focal seizure tics 2/2 to progression dementia. PT & OT; requires assist of 2, recommend skilled rehab.
Met with patient and his sister aPuline; both agree to d/c today to [facility] by ambulance. The patient was informed he was going to a rehab facility and does not appear to comprehend the details.
As per prior CM notes, patient accepted by Shwetha Dodson, Pie Filler, [facility] (ph [phone]) to the Memory Care Unit today with noon transport. The ph for report to nurse Yara [phone], fax
[phone].
Plan [facility], Memory Care Unit Th09/24 at noon by ambulance.
--- NOTE | 2023-09-25 17:59 | W.DCSUMMARY ---
Addendum entered and electronically signed by Ottoniel Dudley MD 10/06/23 08:23:
Multifactorial acute encephalopathy and dementia
Original Note:
Discharge Summary
Discharge Data
Date of Admission: 09/20/23
Date of Discharge: 09/25/23
-
Pending Results: No
Hospital Course
Discharge diagnoses:
Acute encephalopathy
Early onset dementia, unclear type
Hypotension
Hypoalbuminemia
Dehydration
Sinus bradycardia
Prior history of alcohol abuse
Mild protein calorie malnutrition
Consults: Cardiology
Hospital course:
62-year-old male with a past medical history of early onset dementia was admitted for increased confusion, hallucinations, wandering the streets.
Patient exhibited some tic-like behavior, and was started on Keppra. His Keppra was held for an EEG. EEG was negative for seizure activity, and Keppra was discontinued.
Patient's hospital course was complicated by hypotension and sinus bradycardia. He was seen in conjunction with cardiology. He was treated with IV fluids, albumin. His hypotension resolved.
Patient was continued on his Aricept for his dementia. His confusion improved, hallucinations resolved. 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 Patient was referred for hospice.
Patient's sister was able to arrange for him to go to a memory care unit. He is medically stable for discharge to the memory care unit at [address] [place] [address].
Disposition: Memory care unit
Discharge planning: Required 34 minutes
Discharge Plan
-
Patient Disposition: Assisted/SNF
Discharge Diagnosis/Procedures: Encephalopathy, early onset dementia, hypotension, hypoalbuminemia, dehydration, sinus bradycardia
Condition: Fair
Diet: Regular
Activity: As tolerated
Referrals:
Abbie Cohen MD [Family Provider] - in one week
Prescriptions:
New
thiamine HCl (vitamin B1) 100 mg Tablet
100 mg PO BID Qty: 0 0RF
multivitamin with folic acid [Tab-A-Yossi] 400 mcg Tablet
1 tab PO DAILY Qty: 0 0RF
lorazepam [Ativan] 0.5 mg tablet
0.5 mg PO DAILY PRN (Reason: agitation) Qty: 30 0RF
Continued
Thu
1 tab PO DAILYPRN PRN (Reason: runny nose)
donepezil 10 mg Tablet
10 mg PO HS
Discontinued
terbinafine HCl 250 mg tablet
250 mg PO .SEE BELOW
Patient Comments:
09/20/2023, family unsure if morning or evening med. and when last taken. Prescribed to take one tablet daily.
Discharge Orders:
Discharge Patient (As Directed); Ordered 09/25/23
Ordered By: Ottoniel Dudley
Discharge Date and Time
Discharge Date/Time: 09/25/23 12:55
Print Language: AUSTRALIAN
--- NOTE | 2023-10-03 07:31 | PN.CDI ---
CDI
- -
CDI:
Physician Documentation Request
Admit Date: 09/20/23 13:55
Dear Doctor Do,
Per ED record patient ' presents to ED from home secondary to 2-week history of worsening generalized weakness, confusion, and decreased oral intake'
Per H&P patient was diagnosed with dementia a year ago at [place]. Recently developed hallucinations and shuffling gait. 'Early onset Dementia unspecified type associated with hallucinations behavioral gait disturbances'
Discharge summary states 'acute encephalopathy. Early onset dementia unclear type.......His confusion improved, hallucinations resolved....Patient was referred to hospice.'
At discharge, what was the likely etiology of patients increase confusion, hallucinations?
Acute Encephalopathy
Dementia , unknown type
Multifactorial acute encephalopathy and dementia
Other
Use of terms such as suspected, likely, concern for, or probable (associated with a specific diagnosis that is being evaluated, monitored, or treated as if it exists) are acceptable and can be coded in the inpatient setting, when documented at the
time of discharge.
Thank you,
Adelina Harris RN, BSN
CDI Specialist
tiger text
Please use your independent medical judgment in providing your response.
== END 2023-09-25 12:55 | disposition home or self-care (01) | DRG 884 ==
LOC: IMU 13:55
PROVIDERS: Clinical Nurse Specialist Family Health; ADMITTING PHYSICIAN Internal Medicine; ATTENDING PHYSICIAN Family Medicine; CONSULT PHYSICIAN Nuclear Medicine Nuclear Cardiology; EMERGENCY PHYSICIAN Emergency Medicine; FAMILY PHYSICIAN Psychiatry & Neurology Neurology
DX: F03.92 Unspecified dementia, unspecified severity, with psychotic disturbance (principal); R64 Cachexia; G93.49 Other encephalopathy; E44.1 Mild protein-calorie malnutrition; F05 Delirium due to known physiological condition; R44.0 Auditory hallucinations; I95.9 Hypotension, unspecified; R00.1 Bradycardia, unspecified; E86.0 Dehydration; Z66 Do not resuscitate; B37.2 Candidiasis of skin and nail; E88.09 Other disorders of plasma-protein metabolism, not elsewhere classified; F10.21 Alcohol dependence, in remission; Z11.52 Encounter for screening for COVID-19; Z68.21 Body mass index [BMI] 21.0-21.9, adult; Z81.1 Family history of alcohol abuse and dependence; Z81.8 Family history of other mental and behavioral disorders; Z91.83 Wandering in diseases classified elsewhere
CPT/HCPCS: 70450; 71045; 80053; 80306; 81003; 82077; 82306; 82533; 82607; 82746; 83735; 84100; 84443; 85025; 87040; 87502; 87811; 92526; 92610; 93005; 95816; 97116; 97163; 97167; 97535; P9047